=== PATIENT | female | born 1995 | race African-American/Black ===

== ENCOUNTER 2022-10-29 10:53 | Emergency (ER) | payer MEDICAID ==
[~2022-10-29] VITALS: Ht 152.4 cm; Wt 55.0 kg
[2022-10-29 11:11] VITALS: O2SAT 100
[2022-10-29] MEDS ORDERED: ERYT1OIN6 EACHEYE (11:43)
[2022-10-29] MEDS ORDERED: DEXAMETHASONE 10 MG/ML VIAL PO ONE (11:45)
[2022-10-29 13:11] VITALS: BP 130/87; PULSE 78; RESP 19; TEMP 98.5
== END 2022-10-29 13:18 | disposition home or self-care (01) ==
LOC: ER 11:42
DX: H10.9 Unspecified conjunctivitis (principal); J02.9 Acute pharyngitis, unspecified
CPT/HCPCS: 87430; 87070; 99283; J1100; Z7610